=== PATIENT | female | born 1955 | race Hispanic/Latino ===

== ENCOUNTER → 2017-11-14 | Outpatient (CLI) | payer OTHER, MEDICARE ==
[~2017-11-14] MED LIST: AMOX-426 PO; ASPI-555 PO; ATOR40TA71 PO; CLON0.2T PO; INSU3INS3 SQ; LEVO500T2 PO; LOSA100T29 PO; MIRALAX PO; NIFE90TA38 PO; SENN-175 PO; SEVE800T7 PO; TRAM50TA2 PO; VIT1TABL75 PO
== END | disposition home or self-care (01) ==
LOC: RAH 09:08
PROVIDERS: ATTEND Family Medicine
DX: Z12.31 Encounter for screening mammogram for malignant neoplasm of breast (principal)
CPT/HCPCS: 77067

== ENCOUNTER 2020-04-12 22:46 | Inpatient (IN) | payer OTHER, MEDICARE ==
[~2020-04-12] VITALS: Ht 165.1 cm; Wt 65.7 kg
[~2020-04-12 22:46] MED LIST changes: -AMOX-426 PO; -ASPI-555 PO; +ASPI-556 PO; +FENO54TA6 PO; +FERR325T22 PO; -LEVO500T2 PO; -LOSA100T29 PO; +LOSA100T58 PO; -NIFE90TA38 PO; +NIFE90TA65 PO; +PANT20TA18 PO; -SENN-175 PO; +SENN8.6T32 PO
[2020-04-12] MEDS ORDERED: MORPHINE SULFATE 2 MG/ML 1ML SYG ONE (23:09)
[2020-04-12] MEDS ORDERED: ONDANSETRON HCL 4 MG/2 ML VIAL ONE (23:49)
[2020-04-12 23:51] LABS: BASOPHILS % (AUTO) 0.1 % (0.0-5.0); HEMATOCRIT 29.2 % (36-48); LYMPHOCYTES % (AUTO) 10.1 % (21.0-51.0); MEAN CORPUSCULAR HGB CONC 31.8 g/dL (32.0-36.0); MEAN CORPUSCULAR VOLUME 103.5 fL (79-99); NEUTROPHILS % (AUTO) 80.4 % (40.0-77.0); PLATELET COUNT (AUTO) 348 K/uL (130-400); RED BLOOD CELL COUNT(AUTO) 2.82 MIL/uL (4.00-5.50); RED CELL DISTRIBUTION WIDTH 14.5 % (11.0-15.5); WHITE BLOOD COUNT (AUTO) 11.4 K/uL (4.8-10.8)
[2020-04-13] LABS: POTASSIUM 3.5 mmol/L (3.5-5.1)
[2020-04-13 00:13] LABS: BILIRUBIN,TOTAL 0.5 mg/dL (0.2-1.0)
[2020-04-13] MEDS ORDERED: ASPIRIN 325 MG TABLET ONE (00:44)
[2020-04-13] MEDS ORDERED: METOPROLOL TARTRATE 25 MG TAB ONE (00:44)
[2020-04-13] MEDS ORDERED: ENOXAPARIN SODIUM 80 MG/0.8 ML SQ ONE (00:44)
[2020-04-13] MEDS ORDERED: TICAGRELOR 90 MG TABLET ONE (00:45)
[2020-04-13] MEDS ORDERED: MORPHINE SULFATE 4 MG/1ML SYG ONE (00:45)
[2020-04-13 01:02] LABS: APPEARANCE,URINE Clear (CLEAR); BILIRUBIN,URINE Negative (NEGATIVE); COLOR,URINE Yellow (YELLOW); GLUCOSE, URINE (UA) TRACE mg/dL (NEGATIVE); KETONES,URINE Trace mg/dL (NEGATIVE); LEUKOCYTE ESTERASE ,URINE Negative (NEGATIVE); NITRATE,URINE Negative (NEGATIVE); OCCULT BLOOD,URINE Negative (NEGATIVE); PH,URINE 8.5 (5.0-8.0); PROTEIN,URINE 300 mg/dL (NEGATIVE); UROBILINOGEN,URINE 0.2 mg/dL (0.2-1.0)
[2020-04-13 01:12] LABS: BACTERIA,URINE Rare /HPF (None Seen); RBC,URINE None Seen /HPF (0-1); WBC,URINE 0-1 /HPF (0-1)
[2020-04-13 01:13] LABS: SQUAMOUS EPITHELIAL CELL,UR 0-2 /HPF (0-2)
[2020-04-13] MEDS ORDERED: NITROGLYCERIN 1GM/1 INCH PACKET TD ONE (09:09)
[2020-04-13] MEDS ORDERED: MORPHINE SULFATE 2 MG/ML 1ML SYG ONE (11:12)
--- NOTE | 2020-04-13 16:55 | NUR ---
RAMIREZ NOTE/IA UNABLE TO MEET WITH PATIENT IN ROOM. NEXT OF KIN CALLED, NOEL MENDEZ. PER DAUGHTER, PATIENT LIVES WITH HER, IS TOTAL DEPENDENT WITH ADLS, HAS USE OF WC AND SHOWER CHAIR, ATTENDS [facility], AND FEELS SAFE FOR PATIENT TO RETURN HOME ONCE DISCHARGED. Addendum: 04/13/20 at 1657 by EMRE VEGA RN CM Amended: Links added.
--- NOTE | 2020-04-13 17:29 | NUR ---
ARRIVAL TO FLOOR ROOM 411. PT IS AWAKE AND ALERT TO HERSELF AND SITUATION. DENIES PAIN AT THIS TIME. BREATHING PATTERN IS EVEN AND UNLABORED. NO VISIBLE SIGNS OF DISTRESS NOTED, NOTED RIGHT LEG WRAPPED IN CRYSTAL WRAP AND SECURED WITH SPLINT. NOTED RIGHT ARM 20G AC PIV, WRAPPED IN TENSOPLAST. PENDING DIALYSIS TODAY. DIALYSIS NURSE AWARE. CALL LIGHT WITHIN REACH.
--- NOTE | 2020-04-13 17:32 | NUR ---
PENDING HOME MEDS TO BE BROUGHT BY FAMILY
[2020-04-13 18:04] VITALS: BP 125/57
[2020-04-13 20:25] VITALS: BP 129/63
[2020-04-13] MEDS ORDERED: MORPHINE SULFATE 2 MG/ML 1ML SYG IV PRN ×2 (21:00)
[2020-04-13] MEDS: CLONIDINE HCL 0.2 MG TABLET PO SCH (21:00)
[2020-04-13] MEDS ORDERED: NITROGLYCERIN 1GM/1 INCH PACKET TD SCH (21:00)
[2020-04-13] MEDS ORDERED: HYDRALAZINE HCL 20 MG/ML VIAL IV PRN (21:15)
--- NOTE | 2020-04-13 21:30 | NUR ---
Per HD nurse nothing removed from patient. Patient not tolerating, low bps during.
--- NOTE | 2020-04-13 22:00 | NUR ---
CLONIDINE NOT ADMINISTERED DUE TO LOW BP DURING DIALYSIS.
[2020-04-13] MEDS: SIMVASTATIN 20 MG TABLET PO SCH (23:56)
[2020-04-14] VITALS (8 sets, daily range): BP systolic 69–108; BP diastolic 13–72
[2020-04-14 06:24] LABS: HEMATOCRIT 26.3 % (36-48); MEAN CORPUSCULAR HEMOGLOBIN 33.5 pg (27.0-33.0); MEAN CORPUSCULAR HGB CONC 31.2 g/dL (32.0-36.0); MEAN CORPUSCULAR VOLUME 107.3 fL (79-99); NUCLEATED RED BLOOD CELLS 0.4 % (0.0-0.19); PLATELET COUNT (AUTO) 298 K/uL (130-400); RED BLOOD CELL COUNT(AUTO) 2.45 MIL/uL (4.00-5.50); RED CELL DISTRIBUTION WIDTH 14.7 % (11.0-15.5); WHITE BLOOD COUNT (AUTO) 16.2 K/uL (4.8-10.8)
[2020-04-14 06:44] LABS: CREATININE 3.8 mg/dL (0.5-1.5); PHOSPHORUS 3.4 mg/dL (2.5-4.9); POTASSIUM 3.1 mmol/L (3.5-5.1)
[2020-04-14 06:59] LABS: BAND NEUTROPHILS % (MANUAL) 1 % (0-2); LYMPHOCYTES % (MANUAL) 12 % (22-44); MAN.DIFF COMMENT-IMPRESSION MANUAL DIFFERENTIAL; MONOCYTES % (MANUAL) 11 % (2-9); PLATELET MORPHOLOGY COMMENT ADEQUATE; SEGMENTED NEUTROPHILS % 76 % (40-70)
[2020-04-14] MEDS ORDERED: GLUCAGON 1MG KIT 1 MG ML IM PRN (07:30)
[2020-04-14] MEDS ORDERED: DEXTROSE 50%-WATER 50 ML DISP.SYRIN IV PRN (07:30)
[2020-04-14] MEDS: INSULIN R PO SS1 SQ SCH ×4 (07:30→21:00)
[2020-04-14] MEDS ORDERED: SEVELAMER CARBONATE 800 MG PO SCH ×2 (08:00→09:02)
[2020-04-14] MEDS ORDERED: ENOXAPARIN SODIUM 80 MG/0.8 ML SQ SCH (09:00)
[2020-04-14] MEDS ORDERED: ASPIRIN 325 MG TABLET PO SCH ×2 (09:00)
[2020-04-14] MEDS ORDERED: FERROUS SULFATE 325 MG PO SCH (09:00)
[2020-04-14] MEDS: CLONIDINE HCL 0.2 MG TABLET PO SCH (09:00)
[2020-04-14] MEDS ORDERED: NITROGLYCERIN 1GM/1 INCH PACKET TD SCH (09:00)
[2020-04-14] MEDS ORDERED: PANTOPRAZOLE SODIUM 40 MG TABLET.DR PO SCH (09:00)
[2020-04-14] MEDS: NITROGLYCERIN 1GM/1 INCH PACKET TD SCH ×3 (09:00→21:00)
[2020-04-14] MEDS ORDERED: FERROUS SULFATE 325 MG TABLET.DR PO SCH (09:02)
[2020-04-14] MEDS: SEVELAMER HCL 800 MG TABLET PO SCH ×2 (13:02→17:00)
[2020-04-14] MEDS ORDERED: SODIUM CHLORIDE 0.9% 500ML 500 ML IV SCH (13:30)
--- NOTE | 2020-04-14 13:30 | NUR ---
PATIENT CONTINUES WITH LOW BP, AM BP MEDS HELD. JACQUES GARCIA ROOF TRUSS BUILDER ROUNDED, MADE AWARE OF LOW BP NEW ORDER BOLUS 500CC NS X 1 IF NOT IMPROVED MAY REPEAT 500CC BOLUS X 1. JACQUES GARCIA SPOKE WITH PATIENTS DAUGHTER, PATIENTS DAUGHTER VOICED SHE DOES NOT WANT ANY AGGRESSIVE MEASURES. DAUGHTER AGREED TO COMFORT MEASURES
--- NOTE | 2020-04-14 14:30 | NUR ---
500CC BOLUS ADMINISTERED X2, WITH NO IMPROVEMENT OF BP REMAINS 80/40. SPOKE WITH JACQUES GARCIA, STATED NEW CONSULT FOR CASE MANAGEMENT HAS BEEN PLACED FOR HOSPICE EVALUATION. PATIENT AT THIS TIME EASILY AROUSABLE, ABLE TO FOLLOW SIMPLE COMMANDS AND FOLLOW SIMPLE DIRECTIONS. WILL CONTINUE TO MONITOR
--- NOTE | 2020-04-14 14:42 | NUR ---
AT [facility], DISCUSSED PT STATUS AND PLAN OF CARE WITH GRISELDA LEON, CALL TO FAMILY -- DTR NOEL MENDEZ, FOR TELEPHONE CONSENT FOR [facility], EXPLAINED FRAGILE, NOT A SURVIVABLE FRACTURE IN THE LONG RUN, LOW BP'S ON ESRD, NOT ABLE TO REMOVE FLUID ON THIS ADMIT. DAUGHTR NOT AWARE THAT PATIENT WOULDNOT E GOING TO HD. MAY NOT ABLE TO TRANSPORT HOME FOR HOSPICE, BP LOW EVEN POST BOLUS LET DTR KNOW THAT [facility] HAS IN HOUSE CONTRACT, CONSENT FOR [facility] OBTAINED, DTR ASKING FOR VISIT, CONTACTED JACQUES QUINN AND UPDATED ON STATUS, CAN WE HAVE DTR VISIT? ORDER RECD, ADVISED HOUSE AND SECURITY, ONE VISITOR, DTR NOEL UPDATES TO [place]
--- NOTE | 2020-04-14 15:50 | NUR ---
Hospice Referral SW contacted pt's dtr. Elena Samuel, re-order for hospice. Dtr. verbalized an understanding of hospice and possible GIP. Referral faxed to [facility] for eval of GIP versus home with hospice. RAMIREZ Richards aware. SW will continue to follow.
[2020-04-14] MEDS ORDERED: MORPHINE SULFATE 2 MG/ML 1ML SYG IM PRN (18:15)
[2020-04-14] MEDS: SIMVASTATIN 20 MG TABLET PO SCH (21:00)
--- NOTE | 2020-04-15 00:30 | NUR ---
HYPOTENSION. PATIENT WITH CONTINUED EPISODES OF HYPOTENSION. ON-CALL CYNDI Carlton NP CONTACTED INFORMED OF TODAY'S BP FINDINGS. ORDERS GIVEN TO 1) DISCONTINUE MORPHINE 2MG IVP Q 2HR NEEDED FOR PAIN. 2) START DILAUDID 0.25MG IVP Q4HR NEEDED FOR PAIN ORDERS READ BACK TO CYNDI Carlton NP AND TRANSCRIBED. PATIENT CURRENTLY IN BED IN STABLE CONDITION, EASILY AROUSED, ABLE TO ABLE ANSWER YES NO QUESTIONS. NO C/O PAIN OR DISCOMFORT AT THIS TIME. CALL DEVICE WITHIN REACH WILL CONT. TO MONITOR.
[2020-04-15] MEDS: NITROGLYCERIN 1GM/1 INCH PACKET TD SCH ×2 (03:00→09:00)
[2020-04-15 04:11] VITALS: BP 84/14
[2020-04-15] MEDS: HYDROMORPHONE HCL 2 MG/ML VIAL IVP PRN ×2 (06:00→18:20)
[2020-04-15] MEDS: INSULIN R PO SS1 SQ SCH ×2 (06:40→11:30)
[2020-04-15] MEDS: SEVELAMER HCL 800 MG TABLET PO SCH ×2 (08:00→12:00)
[2020-04-15 09:18] VITALS: BP 94/23
--- NOTE | 2020-04-15 11:02 | NUR ---
[facility] here for assessment and informed this worker that pt. does not meet for GIP. Plan is for pt. to return home with hospice.
[2020-04-15 12:10] VITALS: BP 71/28
[2020-04-15 16:00] VITALS: BP 79/50
--- NOTE | 2020-04-15 17:58 | NUR ---
REPORT GIVEN TO NURSE KIANA CHARLES RN WITH [facility].MADE AWARE PATIENT ON 4L O2 NC, 16F PICHARDO CATHETER IN PLACE. IV REMOVED, TELE REMOVED. PATIENT AT THIS TIME ALERT X 1. DISCHARGE INSTRUCTIONS REVIEWED WITH PATIENTS DAUGHTER. PATIENT UNABLE TO SIGN. AWAITING EMS TRANSFER HOME
== END 2020-04-15 18:54 | DRG 280 ==
LOC: EDH 22:46 → UNDOADMOB 04-13 01:00 → EDHIP 04-13 01:00 → OBSVTOIN 04-13 11:04 → INTOOBSV 04-13 11:04 → 4BH 04-13 17:30 → EDHIP 04-13 17:30
PROVIDERS: ADMIT Internal Medicine Critical Care Medicine; ATTEND Internal Medicine Critical Care Medicine
PROC: 5A1D70Z Performance of Urinary Filtration, Intermittent, Less than 6 Hours Per Day (ICD-10-PCS; principal; 2020-04-13)
DX: I21.3 ST elevation (STEMI) myocardial infarction of unspecified site (principal); N18.6 End stage renal disease; R57.0 Cardiogenic shock; S72.401A Unspecified fracture of lower end of right femur, initial encounter for closed fracture; I13.2 Hypertensive heart and chronic kidney disease with heart failure and with stage 5 chronic kidney disease, or end stage renal disease; I69.351 Hemiplegia and hemiparesis following cerebral infarction affecting right dominant side; I42.9 Cardiomyopathy, unspecified; E11.22 Type 2 diabetes mellitus with diabetic chronic kidney disease; Z51.5 Encounter for palliative care; K21.9 Gastro-esophageal reflux disease without esophagitis; I70.201 Unspecified atherosclerosis of native arteries of extremities, right leg; F03.90 Unspecified dementia, unspecified severity, without behavioral disturbance, psychotic disturbance, mood disturbance, and anxiety; E83.52 Hypercalcemia; E78.5 Hyperlipidemia, unspecified; D72.829 Elevated white blood cell count, unspecified; D64.9 Anemia, unspecified; Z66 Do not resuscitate; I25.10 Atherosclerotic heart disease of native coronary artery without angina pectoris; W01.0XXA Fall on same level from slipping, tripping and stumbling without subsequent striking against object, initial encounter; E11.51 Type 2 diabetes mellitus with diabetic peripheral angiopathy without gangrene; Y92.002 Bathroom of unspecified non-institutional (private) residence as the place of occurrence of the external cause; Z99.2 Dependence on renal dialysis; Y99.8 Other external cause status; Y93.E1 Activity, personal bathing and showering; Z90.710 Acquired absence of both cervix and uterus; Z83.3 Family history of diabetes mellitus; Z79.82 Long term (current) use of aspirin; Z79.4 Long term (current) use of insulin; Z74.01 Bed confinement status; Z79.899 Other long term (current) drug therapy; Z82.49 Family history of ischemic heart disease and other diseases of the circulatory system; Z84.1 Family history of disorders of kidney and ureter
CPT/HCPCS: 36415; 71045; 73552; 80048; 80053; 81001; 82550; 82948; 84100; 84484; 85025; 87040; 90935; 93005; 93306; 93356; 99291; G0378; J1170; J1650; J2270; J2405